=== PATIENT | female | born 1965 | race Caucasian/White ===

== ENCOUNTER 2023-07-14 18:18 | Emergency (ER) | payer OTHER ==
[~2023-07-14] VITALS: Ht 170.2 cm; Wt 84.8 kg
[2023-07-14 18:30] LABS: HEMATOCRIT 37.5 % (35.0-50.0); MCV 87.2 fl (81-99); PLATELET COUNT 430 K/uL (140-440); RDW 14.5 (10.5-15.0)
[2023-07-14 18:43] LABS: BANDS, MANUAL DIFF 1; EOSINOPHILS, MANUAL DIFF 1; LYMPHOCYTES, MANUAL DIFF 14; MONOCYTES, MANUAL DIFF 8; NEUTROPHILS, MANUAL DIFF 76
[2023-07-14 18:45] LABS: ALBUMIN/GLOBULIN RATIO 0.79 (1.1-2.4); ALCOHOL, MEDICAL <3 ng/dL (<3); ALKALINE PHOSPHATASE 108 U/L (46-116); ALT (SGPT) 31 U/L (14-59); ANION GAP 15.5 (7-21); AST (SGOT) 39 U/L (15-37); BILIRUBIN, TOTAL 0.1 ng/dL (0.2-1.0); BUN/CREATININE RATIO 11.03 (6.0-28.6); CALCIUM 8.5 mg/dL (8.5-10.1); CARBON DIOXIDE 24 mmol/L (21-32); CHLORIDE 104 mmol/L (98-107); CREATININE, SERUM 1.45 mg/dL (0.55-1.02); GLOMERULAR FILTRATION RATE,EST 42 mL/min (>60); POTASSIUM 4.5 mmol/L (3.5-5.1); PROTEIN, TOTAL 6.8 g/dL (6.4-8.2); UREA NITROGEN 16 mg/dL (7-18)
[2023-07-14 19:03] LABS: ABO A; ANTIBODY SCREEN NEGATIVE; RH POSITIVE
[2023-07-14 19:11] LABS: PARTIAL THROMBOPLASTIN TIME 28.4 Sec (22.9-41.3)
[2023-07-14 19:12] LABS: INR 0.99 (0.80-1.30); PROTIME 12.6 Sec (11.2-14.2)
[2023-07-14 19:20] LABS: BASE EXCESS, BLOOD GAS 1.4 mmol/L (-2-2); HCO3, BLOOD GAS 25.9 mmol/L (22-26); O2 SATURATION, BLOOD GAS 99.7 % (95.0-100.0); PCO2, BLOOD GAS 37.7 mmHg (35-45); PH, BLOOD GAS 7.44 (7.35-7.45); PO2, BLOOD GAS 266 mmHg (80-100); TOTAL CO2, BLOOD GAS 27.2
[2023-07-14 19:28] LABS: AMPHETAMINES, URINE POSITIVE (NEGATIVE); BARBITURATES, URINE NEGATIVE (NEGATIVE); BENZODIAZEPINE, URINE POSITIVE (NEGATIVE); BUPRENORPHINE, URINE NEGATIVE (NEGATIVE); CANNABINOID, URINE NEGATIVE (NEGATIVE); COCAINE, URINE NEGATIVE (NEGATIVE); ECSTASY, URINE POSITIVE (NEGATIVE); FENTANYL, URINE POSITIVE (NEGATIVE); METHADONE, URINE NEGATIVE (NEGATIVE); OPIATES, URINE NEGATIVE (NEGATIVE); OXYCODONE, URINE NEGATIVE (NEGATIVE); PHENCYCLIDINE, URINE NEGATIVE (NEGATIVE)
[2023-07-14 22:20] VITALS: BP 142/76
== END 2023-07-14 21:50 | disposition short-term general hospital (02) ==
LOC: ED 18:18
PROVIDERS: Emergency Medicine
DX: S06.6X9A Traumatic subarachnoid hemorrhage with loss of consciousness of unspecified duration, initial encounter (principal); S06.5X9A Traumatic subdural hemorrhage with loss of consciousness of unspecified duration, initial encounter; S06.A1XA Traumatic brain compression with herniation, initial encounter; S02.119A Unspecified fracture of occiput, initial encounter for closed fracture; S02.0XXA Fracture of vault of skull, initial encounter for closed fracture; S02.19XA Other fracture of base of skull, initial encounter for closed fracture; I10 Essential (primary) hypertension; W10.9XXA Fall (on) (from) unspecified stairs and steps, initial encounter
CPT/HCPCS: 36415; 36600; 70450; 70496; 70498; 71045; 71260; 72125; 72170; 74177; 80053; 80307; 82803; 85025; 85610; 85730; 86850; 86900; 86901; G0480; J1953; J3010; J7060; J7131; Q9967